=== PATIENT | male | born 1965 | race Caucasian/White ===

== ENCOUNTER 2016-12-23 15:01 | Emergency (ER) | payer BC, MEDICAID ==
[~2016-12-23] VITALS: Wt 69.0 kg
[~2016-12-23 15:01] MED LIST: ERYTOPOI RIGHT EYE
[2016-12-23] MEDS ORDERED: LIDOCAINE 1% (MDV) 20 ML INJ SC ONE (17:30)
[2016-12-23] MEDS ORDERED: IBUP-1542 PO (18:15)
--- NOTE | 2016-12-23 18:16 | RADRPT ---
PROCEDURE: XR Hand. CLINICAL INDICATION: Pain. TECHNIQUE: AP oblique and lateral views of the right hand were obtained. COMPARISON: No. FINDINGS: The soft tissues and bony elements are normal. Joint spaces are normal. IMPRESSION: 1. Normal right hand. RPTAT:AAJJ Physician Jesus Alberto Date Time Electronically viewed and signed by Amado Levi Physician on 12/23/2016 18:15 /
[2016-12-23] MEDS ORDERED: TRAM50TA2 PO (18:17)
--- NOTE | 2016-12-23 18:20 | ERD ---
ER Documentation Chief Complaint Date/Time DATE: 12/23/16 TIME: 18:19 Chief Complaint R HAND SORE FOR THE PAST FEW DAYS. NO DISTRESS. NO BLEEDING. HPI This 51-year-old male complains of a three-day history of a bump on his right palm. He does a lot of guarding but denies any specific trauma or any puncture wound or potential foreign body. He has pain with extension of his fingers. He denies any other lesions. ROS All systems reviewed and are negative except as per history of present illness. Medications Home Meds Active Scripts Tramadol HCl (Tramadol HCl) 50 Mg Tablet, 50 MG PO Q4 Y for PAIN, #10 TAB Prov:SANTA GALVAN MD 12/23/16 Ibuprofen* (Motrin*) 600 Mg Tab, 600 MG PO Q6, #20 TAB Prov:SANTA GALVAN MD 12/23/16 Erythromycin* (Erythromycin* Ophthalmic) 1 Applic Oint, 1 APPLIC RIGHT EYE Q4 for 7 Days, TUB 0 Refills Prov:LAURI SMITH PA-C 10/07/15 Allergies Allergies: Coded Allergies: No Known Allergy (Unverified , 06/30/14) PMhx/Soc History of Surgery: No Anesthesia Reaction: No Hx Neurological Disorder: No Hx Respiratory Disorders: No Hx Cardiac Disorders: No Hx Psychiatric Problems: No Hx Miscellaneous Medical Probl: Yes (CHRONIC BACK PAIN) Hx Alcohol Use: No Hx Substance Use: No Hx Tobacco Use: No Smoking Status: Never smoker Physical Exam Vitals Vital Signs Date Time Temp Pulse Resp B/P Pulse Ox O2 Delivery O2 Flow Rate FiO2 12/23/16 15:04 98.5 84 20 119/78 98 Physical Exam Const: [] Alert, [id number] per Head: Atraumatic Eyes: Normal Conjunctiva ENT: Normal External Ears, Nose and Mouth. Neck: Full range of motion..~ No meningismus. Resp: Clear to auscultation bilaterally Cardio: Regular rate and rhythm, no murmurs Abd: Soft, non tender, non distended. Normal bowel sounds Skin: No petechiae or rashes. And the skin of the right palm there is approximately 1 cm palpable lesion which is slightly mobile with extension of the affected digit which is the third digit. There is no significant warmth, erythema. Possibly very deep pointing vesicle. Back: No midline or flank tenderness Ext: No cyanosis, or edema Neur: Awake and alert Psych: Normal Mood and Affect Results 24 hrs Current Medications Medications (Trade) Dose Ordered Sig/Kaleb Route PRN Reason Start Time Stop Time Status Last Admin Dose Admin Lidocaine (Xylocaine 1% (Mdv) 20 ml) 20 ml ONCE ONCE SC 12/23/16 17:30 12/23/16 17:31 DC Procedures/MDM X-ray right hand 3V interpreted by me: Scaphoid: Normal Bones: No fracture Joints: No dislocation Foreign body: None impression-normal right hand x-ray Procedure non-sterile technique 1 cc of lidocaine was used for local infiltration. An 18-gauge needle was used to caroline the palpable nodule with no expression of fluid or purulent discharge. Patient presents with a bump on his right palm of uncertain etiology. May be a ganglion or inflammation of the tendon. Signs and symptoms are not consistent with an abscess and there is no appreciable foreign body. Recommending ibuprofen, warm soaks and to follow-up with orthopedist and possibly hand surgeon for persistent symptoms. She does return for redness, fevers, new or worsening symptoms. Signs or symptoms are not consistent with bacterial tenosynovitis, osteomyelitis, fracture, dislocation, additional emergent hand conditions Departure Diagnosis: Primary Impression: Pain of hand Laterality: right Qualified Code: M79.641 - Pain of right hand Condition: Stable Patient Instructions: Ganglion Cyst: Hand, Tendonitis Referrals: [facility] Additional Instructions: POSIBLEMENTE CYSTE . CHEQUE CON GUNN DOCTOR PRIMARIO O ORTHOPEDICO PARA MAS EVALUATION O OTRO VEZ PARA MAS SIMPTOMAS. PONE EN AGUA TIBIA EN CASA. SANTA GALVAN MD Dec 23, 2016 18:20
== END 2016-12-23 18:45 | disposition home or self-care (01) ==
LOC: FTE 15:01
DX: M79.641 Pain in right hand (principal)
CPT/HCPCS: 20605; 73130; 99283; Z7610

== ENCOUNTER 2017-10-07 11:44 | Emergency (ER) | payer BC ==
[~2017-10-07] VITALS: Ht 175.3 cm; Wt 79.4 kg
[~2017-10-07 11:44] MED LIST changes: +IBUP-1542 PO; +TRAM50TA2 PO
[2017-10-07 11:47] VITALS: Ht 175.3 cm; Wt 79.4 kg
[2017-10-07] MEDS ORDERED: IBUPROFEN 600 MG TAB PO ONE (13:30)
[2017-10-07] MEDS ORDERED: traMADol 50 MG TAB PO ONE (13:30)
--- NOTE | 2017-10-07 13:57 | RADRPT ---
PROCEDURE: XR Knee. CLINICAL INDICATION: Left knee pain TECHNIQUE: 3 images of the left knee are available for review. COMPARISON: None available FINDINGS: There is no acute fracture. Alignment is normal. Joint spaces are preserved. Soft tissues are grossly unremarkable. IMPRESSION: 1. No radiographic evidence of acute osseous abnormality of the left knee. RPTAT: UU .Winston Swain MD, MD Date Time Electronically viewed and signed by .Winston Swain MD, on 10/07/2017 13:56 .K/
[2017-10-07] MEDS ORDERED: IBUP-1542 PO (14:13)
[2017-10-07] MEDS ORDERED: TRAM50TA2 PO (14:13)
--- NOTE | 2017-10-07 14:17 | ERD ---
ER Documentation Chief Complaint Chief Complaint Left knee pain x 2 days, twisted HPI This 52-year-old male presents with left knee pain for the last 2 days. Denies any history of trauma or fall. He may have walked and stepped awkwardly. Denies fevers, redness, bleeding. Denies any previous knee problems. ROS All systems reviewed and are negative except as per history of present illness. Medications Home Meds Active Scripts Tramadol HCl (Tramadol HCl) 50 Mg Tablet, 50 MG PO BID, #20 TAB Prov:SANTA GALVAN MD 10/07/17 Ibuprofen* (Ibuprofen*) 600 Mg Tablet, 600 MG PO Q6 for 20 Days, TAB Prov:SANTA GALVAN MD 10/07/17 Tramadol HCl (Tramadol HCl) 50 Mg Tablet, 50 MG PO Q4 Y for PAIN, #10 TAB Prov:SANTA GALVAN MD 12/23/16 Ibuprofen* (Motrin*) 600 Mg Tab, 600 MG PO Q6, #20 TAB Prov:SANTA GALVAN MD 12/23/16 Erythromycin* (Erythromycin* Ophthalmic) 1 Applic Oint, 1 APPLIC RIGHT EYE Q4 for 7 Days, TUB 0 Refills Prov:LAURI SMITH PA-C 10/07/15 Allergies Allergies: Coded Allergies: No Known Allergy (Unverified , 06/30/14) PMhx/Soc Medical and Surgical Hx: pt denies Medical Hx, pt denies Surgical Hx History of Surgery: No Anesthesia Reaction: No Hx Neurological Disorder: No Hx Respiratory Disorders: No Hx Cardiac Disorders: No Hx Psychiatric Problems: No Hx Miscellaneous Medical Probl: Yes (CHRONIC BACK PAIN) Hx Alcohol Use: No Hx Substance Use: No Hx Tobacco Use: No Smoking Status: Never smoker Physical Exam Vitals Vital Signs Date Time Temp Pulse Resp B/P Pulse Ox O2 Delivery O2 Flow Rate FiO2 10/07/17 11:47 98.1 90 18 122/78 98 Physical Exam Const: [], [id number]. Head: Atraumatic Eyes: Normal Conjunctiva ENT: Normal External Ears, Nose and Mouth. Neck: Full range of motion..~ No meningismus. Resp: Clear to auscultation bilaterally Cardio: Regular rate and rhythm, no murmurs Abd: Soft, non tender, non distended. Normal bowel sounds Skin: No petechiae or rashes Back: No midline or flank tenderness Ext: No cyanosis, or edema. Tenderness on the lateral aspect of the fibular head some mild swelling. No erythema, effusion, deformities. No calf swelling or Homans sign, no deficits appreciated neurologically or ligamentous. Neur: Awake and alert Psych: Normal Mood and Affect Results 24 hrs Current Medications Medications (Trade) Dose Ordered Sig/Kaleb Route PRN Reason Start Time Stop Time Status Last Admin Dose Admin Ibuprofen (Motrin) 600 mg ONCE ONCE PO 10/07/17 13:30 10/07/17 13:31 DC 10/07/17 13:53 Tramadol HCl (Ultram) 50 mg ONCE ONCE PO 10/07/17 13:30 10/07/17 13:31 DC 10/07/17 13:53 Procedures/MDM X-ray left knee 3V Interpreted by me: Bones: No fracture Joints: No dislocation Foreign body: None impression-normal left knee x-ray Patient presents with left knee pain of uncertain etiology with signs of likely tendinitis or sprain. He will be treated with ice, ibuprofen, tramadol and primary care follow-up in orthopedic evaluation for persistent pain. He is advised to return for fevers, redness, new worsening symptoms. No current signs or symptoms of fracture, dislocation, DVT, bacterial infection, ischemia, deficits. Departure Diagnosis: Primary Impression: Knee pain Chronicity: acute Laterality: left Qualified Code: M25.562 - Acute pain of left knee Condition: Stable Patient Instructions: Knee Pain, Uncertain Cause Referrals: SANDRA CHÁVEZ MD Additional Instructions: X RAY NORMAL. PROBABLEMENTE TENDONITIS/ MUSCULOS. Va al bernardo doctor/ specialista para mas evaluacon en el proximo semana. posiblemente necesita autorizado de bernardo doctor primario para specialista. Regresa para fiebre, o mas o nueva simptomas. SANTA GALVAN MD Oct 07, 2017 14:17
[2017-10-07 14:48] VITALS: BP 127/77; PULSE 72; RESP 19
== END 2017-10-07 14:49 | disposition home or self-care (01) ==
LOC: FTE 11:44
DX: M25.562 Pain in left knee (principal)
CPT/HCPCS: 73562; 99283; Z7610

== ENCOUNTER 2019-05-30 06:25 | Emergency (ER) | payer BC ==
[~2019-05-30] VITALS: Ht 160 cm; Wt 80.9 kg
[~2019-05-30 06:25] MED LIST changes: +ALBU18HF INHALATION; +D-ME473S2 PO; +PRED20TA PO; +PROM6.2515 PO
[2019-05-30 06:30] VITALS: Ht 160 cm; Wt 80.9 kg
[2019-05-30] MEDS ORDERED: DEXAMETHASONE 10 MG/ML 1 ML INJ IM STA (07:18)
[2019-05-30] MEDS ORDERED: ALBUTEROL 0.083% (NEB) 2.5 MG/3 ML AMP NEB STA (07:18)
[2019-05-30] MEDS ORDERED: IPRATROPIUM (NEB) 0.5 MG/2.5 ML AMP NEB STA (07:18)
--- NOTE | 2019-05-30 07:27 | ERD ---
ER Documentation Chief Complaint Chief Complaint cough x 1 week; denies CP and fevers HPI 53-year-old male with no reported past medical surgical history, history prominent smoking who quit 3 months ago who presents with complaint of persistent cough. Patient states been having cough productive of white sputum. He otherwise denies fevers, chills, dyspnea on exertion, nausea, vomiting, diarrhea, abdominal pain, urinary symptoms. Has tried some [id number] cough medications which have not helped much with his symptoms including benzonatate. ROS All systems reviewed and are negative except as per history of present illness. Medications Home Meds Active Scripts Promethazine Hcl* (Promethazine Hcl* Syrup) 6.25 Mg/5 Ml Syrup, 12.5 MG PO Q6H PRN for COUGH for 7 Days, ML Prov:LYLE SIDDIQI PA-C 05/30/19 Tramadol HCl (Tramadol HCl) 50 Mg Tablet, 50 MG PO BID, #20 TAB Prov:SANTA GALVAN MD 10/07/17 Ibuprofen* (Ibuprofen*) 600 Mg Tablet, 600 MG PO Q6 for 20 Days, TAB Prov:SANTA GALVAN MD 10/07/17 Tramadol HCl (Tramadol HCl) 50 Mg Tablet, 50 MG PO Q4 PRN for PAIN, #10 TAB Prov:SANTA GALVAN MD 12/23/16 Ibuprofen* (Motrin*) 600 Mg Tab, 600 MG PO Q6, #20 TAB Prov:SANTA GALVAN MD 12/23/16 Erythromycin* (Erythromycin* Ophthalmic) 1 Applic Oint, 1 APPLIC RIGHT EYE Q4 for 7 Days, TUB 0 Refills Prov:LAURI SMITH PA-C 10/07/15 Allergies Allergies: Coded Allergies: No Known Allergy (Unverified , 06/30/14) PMhx/Soc Medical and Surgical Hx: pt denies Surgical Hx History of Surgery: No Anesthesia Reaction: No Hx Neurological Disorder: No Hx Respiratory Disorders: No Hx Cardiac Disorders: No Hx Psychiatric Problems: No Hx Miscellaneous Medical Probl: Yes (CHRONIC BACK PAIN) Hx Alcohol Use: No Hx Substance Use: No Hx Tobacco Use: Yes Smoking Status: Former smoker FmHx Family History: No diabetes, No coronary disease, No other Physical Exam Vitals Vital Signs Date Temp Pulse Resp B/P (MAP) Pulse Ox O2 O2 Flow FiO2 Time Delivery Rate 05/30/19 97.0 71 20 135/81 99 06:30 (99) Physical Exam Const: No acute distress Head: Atraumatic Eyes: Normal Conjunctiva ENT: Normal External Ears, Nose and Mouth. Neck: Full range of motion. No meningismus. Resp: Mild crackles but mostly clear to auscultation, no wheezing, good air entry and flow Cardio: Regular rate and rhythm, no murmurs Abd: Soft, non tender, non distended. Normal bowel sounds Skin: No petechiae or rashes Back: No midline or flank tenderness Ext: No cyanosis, or edema Neur: Awake and alert Psych: Normal Mood and Affect Results 24 hrs Current Medications Medications Dose Sig/Kaleb Start Time Status Last (Trade) Ordered Route PRN Stop Time Admin Dose Reason Admin Albuterol 2.5 mg ONCE STAT 05/30/19 DC (Proventil NEB 07:18 05/30/19 0.083% (Neb)) 07:19 Ipratropium 0.5 mg ONCE STAT 05/30/19 DC [place] NEB 07:18 05/30/19 (Atrovent 07:19 0.02% (Neb)) 10 mg ONCE STAT 05/30/19 DC Dexamethasone IM 07:18 05/30/19 (Decadron) 07:19 Procedures/MDM 53-year-old male former smoker who presents with chronic cough complaints. Symptoms may be secondary to acute bronchitis. I have low suspicion for underlying infection such as pneumonia. Given patient's long-standing history of smoking he is at risk for COPD. Will discharge with promethazine. Patient advised to follow-up with his primary care provider. I do not feel imaging is indicated at this time. Patient symptoms improved with nebulizer treatments and single dose of steroids at in ED. Would not discharge with additional steroids. DISPOSITION PLAN: We discussed follow up with the patient's primary care doctor within 24 to 48 hours. Patient counseled regarding my diagnostic impression and care plan. Prior to discharge all questions answered. Pt agrees with treatment plan and understands strict return precautions. Precautionary instructions provided including instructions to return to the ER if not improving or for any worsening or changing symptoms or concerns. Disclaimer: Inadvertent spelling and grammatical errors are likely due to EHR/dictation software use and do not reflect on the overall quality of patient care. Also, please note that the electronic time recorded on this note does not necessarily reflect the actual time of the patient encounter. Departure Diagnosis: Primary Impression: Cough Condition: Stable Patient Instructions: Bronchitis, No Antibiotic (Adult), Cough, Chronic, U ncertain Cause, (Adult) Referrals: PETER MASON (PCP) Additional Instructions: Call your primary care doctor TOMORROW for an appointment during the next 2-3 days.See the doctor sooner or return here if your condition worsens before your appointment time. LYLE SIDDIQI PA-C May 30, 2019 07:27
[2019-05-30 08:13] VITALS: BP 129/74; PULSE 89; RESP 20
== END 2019-05-30 08:15 | disposition home or self-care (01) ==
LOC: FTE 06:25
DX: R05 Cough (principal); Z87.891 Personal history of nicotine dependence
CPT/HCPCS: 94664; 96372; 99284; J1100; Z7610

== ENCOUNTER 2019-06-13 07:39 | Emergency (ER) | payer BC ==
[~2019-06-13] VITALS: Ht 162.6 cm; Wt 80.6 kg
[2019-06-13 07:42] VITALS: Ht 162.6 cm; Wt 80.6 kg
[2019-06-13] MEDS ORDERED: ALBUTEROL HFA 8 GM INHALER INH ONE (09:00)
[2019-06-13 09:21] VITALS: BP 149/85; PULSE 81; RESP 20
[2019-06-13] MEDS ORDERED: predniSONE 20 MG TAB PO ONE (09:30)
== END 2019-06-13 09:23 | disposition home or self-care (01) ==
LOC: FTE 07:39
DX: F17.210 Nicotine dependence, cigarettes, uncomplicated (principal)
CPT/HCPCS: 71045; 99283; J7512; Z7610